=== PATIENT | male | born 1955 | race Caucasian/White ===

== ENCOUNTER 2021-10-22 07:42 | Day surgery (SDC) | payer BC ==
[2021-10-22] VITALS (14 sets, daily range): BP systolic 121–150; BP diastolic 76–107; PULSE 51–124; TEMP 97–98
[~2021-10-22] VITALS: Ht 177.8 cm; Wt 92.3 kg
[2021-10-22] MEDS ORDERED: COZAAR 25MG25 MG/TAB PO (08:15)
[2021-10-22] MEDS ORDERED: CRESTOR20 MG PO (08:15)
--- NOTE | 2021-10-22 13:20 | NUR ---
PT TO BAY 7 PER BED FROM PACU. RECEIVED REPORT. VS OBTAINED. PT TOLERATING WATER WITHOUT DIFFICULTY. PT DENIES ADDITIONAL NEEDS AT THIS TIME. WILL CONTINUE TO MONITOR.
--- NOTE | 2021-10-22 13:35 | NUR ---
PT TOLERATING ORANGE JUICE. DENIES ANY NEEDS.
--- NOTE | 2021-10-22 14:16 | NUR ---
1405-PT C/O ITCHING. Fernandez VEGA SUPERINTENDENT PIER NOTIFIED. ORDERS RECEIVED. 1416-NUBAIN 5 MG IV GIVEN AT THIS TIME FOR ITCHING.
--- NOTE | 2021-10-22 14:35 | NUR ---
PT CONTINUES TO TOLERATE PO WITHOUT DIFFICULTY. DENIES ANY NEEDS.
--- NOTE | 2021-10-22 15:00 | NUR ---
PT STATES ITCHING IS MUCH BETTER. DENIES ANY NEEDS AT THIS TIME.
--- NOTE | 2021-10-22 15:30 | NUR ---
REPORT GIVEN TO HEATHER MATA. PT TRANSFER TO ROOM 328 PER BED.
[2021-10-23 03:00] VITALS: BP 137/83; PULSE 52; TEMP 97.8
[2021-10-23 06:16] LABS: HEMATOCRIT 39.2 % (42.0-52.0); HEMOGLOBIN 13.2 g/dl (13.5-18.0)
[2021-10-23 06:31] LABS: CREATININE, serum 1.14 mg/dL (0.72-1.25); POTASSIUM 4.3 mmol/L (3.5-4.5)
[2021-10-23 07:56] VITALS: BP 130/75; PULSE 62; TEMP 98
--- NOTE | 2021-10-23 09:48 | NUR ---
SW met with the patient to discuss discharge plan. The patient lives in [place], [place] with his , Winnie (ph#[phone]). He reports independence with ADLs and has a cane and walker. The patient's PCP is Dr. Molina in [place] and he receives his medications from a [facility]. The patient does not have a DPOA-HC in EMR, but he states that he does have one completed and that it designates his . The patient plans to return home with his upon discharge. No additional needs at this time. *Discharge plan: home with *
--- NOTE | 2021-10-23 10:08 | NUR ---
CALLED WENDY BECERRA ABOUT HEMAVAC OUTPUT. SHE STATED HER AND THE PHYSICIAN WILL ROUND SOON AND EVAL THE PATIENT.
--- NOTE | 2021-10-23 10:23 | NUR ---
CALL RECIEVED FROM HERNAN NGUYEN THAT DR MCKEON ORDERED FOR DRAIN TO BE REMOVED AND IS AWARE OF THE DRAINAGE AMOUNT.
--- NOTE | 2021-10-23 10:35 | NUR ---
HEMOVAC DRAIN DISONCITNUED. PRESSURE APPLIED, THEN DRESSING. 110 CC OUTPUT AT THAT TIME.
[2021-10-23 12:02] VITALS: BP 133/84; PULSE 64; TEMP 98.2
[2021-10-23] MEDS ORDERED: ASPIRIN E.C. 8181 MG PO (12:05)
[2021-10-23] MEDS ORDERED: ULTRAM 50MG TAB50 MG PO (12:06)
[2021-10-23] MEDS ORDERED: CEPHALEXIN500 M1 PO (12:07)
--- NOTE | 2021-10-23 13:12 | NUR ---
PATIENT GIVEN ALL DISCHARGE INSTRUCITONS AND EDUCATION. IV DISCONTINUED. PATIENT LEFT IN STABLE CONDITION WITH HIS .
== END 2021-10-23 13:27 | disposition home or self-care (01) ==
LOC: SDCO 07:42 → SURG 16:26 → SDCO 10-23 13:27
PROVIDERS: Orthopaedic Surgery
DX: M17.11 Unilateral primary osteoarthritis, right knee (principal); I10 Essential (primary) hypertension; Z87.891 Personal history of nicotine dependence
CPT/HCPCS: OP; C1713; C1776; J0360; J0690; J1100; J1200; J1580; J1885; J2250; J2270; J2300; J2405; J2704; J2795; J3010; J7120